=== PATIENT | female | born 1965 | race Caucasian/White ===

== ENCOUNTER → 2016-07-21 | Outpatient (CLI) | payer BC ==
[~2016-07-21] MED LIST: ALPR0.25 PO; ASPCH81X PO; CMD/25 PO; FRS/40 PO; GLC/500 PO; METO25TA3 PO; NTRGSL/4 UT; SIMV-151 PO; TPRSR/25 PO; TRIATAB3 PO
[2016-07-21 09:40] LABS: MEAN CELL VOLUME 64.3 fL (80-100); MEAN CORPUSCULAR HEMOGLOBIN 20.7 pg (25-34); MEAN CORPUSCULAR HGB CONC 32.2 g/dl (32-36); MEAN PLATELET VOLUME 10.5 fL (7.4-10.4); PLATELET COUNT 288 K/uL (130-400); WHITE BLOOD COUNT 7.03 K/uL (4.8-10.8)
[2016-07-21 09:57] LABS: ALT/SGPT 66 U/L (12-78); BLOOD UREA NITROGEN 19 mg/dl (7-18); BUN/CREATININE RATIO 17.6 (10-20); CALCIUM 9.4 mg/dl (8.5-10.1); CARBON DIOXIDE 26 mmol/L (21-32); CHLORIDE 103 mmol/L (98-107); CHOLESTEROL 154 mg/dl (0-200); GLUCOSE 166 mg/dl (70-99); POTASSIUM 3.8 mmol/L (3.5-5.1); SODIUM 139 mmol/L (136-145)
[2016-07-21 10:05] LABS: ALB/GLOB RATIO 1.2 (0.9-2); ALKALINE PHOSPHATASE 53 U/L (45-117); AST/SGOT 50 U/L (15-37); CHOLESTEROL/HDL RATIO 4.2; HDL CHOLESTEROL 37 mg/dl; LDL CHOLESTEROL CALCULATED 78 mg/dl; TRIGLYCERIDES 194 mg/dl (0-150); VERY LOW DENSITY LIPOPROT CALC 39 mg/dl
[2016-07-21 10:10] LABS: ESTIMATED AVERAGE GLUCOSE 148 mg/dl; HA1C FLAG Normal (Normal)
== END | disposition home or self-care (01) ==
LOC: C.LAB1850 07:53
PROVIDERS: ATTEND Family Medicine
DX: E78.5 Hyperlipidemia, unspecified (principal); E11.9 Type 2 diabetes mellitus without complications; I25.10 Atherosclerotic heart disease of native coronary artery without angina pectoris

== ENCOUNTER → 2016-11-10 | Outpatient (CLI) | payer BC ==
[~2016-11-10] MED LIST changes: -TPRSR/25 PO
--- NOTE | 2016-11-10 12:43 | MAMMOGRAPHY REPORT ---
BILATERAL DIGITAL SCREENING MAMMOGRAM TOMOSYNTHESIS WITH CAD: 11/10/2016 CLINICAL HISTORY: Routine screening. Patient has no complaints. TECHNIQUE: Breast tomosynthesis in addition to standard 2D mammography was performed. Current study was also evaluated with a Computer Aided Detection (CAD) system. COMPARISON: Comparison is made to exams dated: 11/09/2015 mammogram, 05/21/2015 mammogram, 11/06/2014 m ammogram, 07/09/2012 mammogram, 07/27/2011 mammogram - [facility], and 08/06/2008 mammo gram. BREAST COMPOSITION: There are scattered areas of fibroglandular density in both breasts. FINDINGS: No suspicious masses, calcifications, or areas of architectural distortion are noted in ei ther breast. There has been no significant interval change compared to prior exams. Bilateral benign -appearing calcifications are not significantly changed. IMPRESSION: ACR BI-RADS CATEGORY 2: BENIGN There is no mammographic evidence of malignancy. A 1 year screening mammogram is recommended. The pa tient will receive written notification of the results. Approximately 10% of breast cancers are not detected with mammography. A negative mammographic report should not delay biopsy if a clinically suggestive mass is present. Dai Moore M.D. /:11/10/2016 09:11:56 Rat Poisoner: Marybeth MCKEON)(M), [facility] letter sent: Normal 1/2 BI-RADS Code: ACR BI-RADS Category 2: Benign
== END | disposition home or self-care (01) ==
LOC: C.MAMM 08:26
PROVIDERS: ATTEND Family Medicine
DX: Z12.31 Encounter for screening mammogram for malignant neoplasm of breast (principal)

== ENCOUNTER → 2017-01-18 | Outpatient (CLI) | payer BC ==
[2017-01-18 12:26] LABS: HEMATOCRIT 36.9 % (37-47); MEAN CELL VOLUME 66.1 fL (80-100); MEAN CORPUSCULAR HEMOGLOBIN 21.1 pg (25-34); MEAN PLATELET VOLUME 10.5 fL (7.4-10.4); PLATELET COUNT 277 K/uL (130-400); RED BLOOD COUNT 5.58 M/uL (4.2-5.4); WHITE BLOOD COUNT 7.61 K/uL (4.8-10.8)
[2017-01-18 12:35] LABS: ESTIMATED AVERAGE GLUCOSE 140 mg/dl; HA1C FLAG Normal (Normal)
[2017-01-18 12:41] LABS: ALT/SGPT 62 U/L (12-78); BLOOD UREA NITROGEN 21 mg/dl (7-18); BUN/CREATININE RATIO 20.6 (10-20); CALCIUM 9.8 mg/dl (8.5-10.1); CARBON DIOXIDE 29 mmol/L (21-32); CHLORIDE 101 mmol/L (98-107); CHOLESTEROL 148 mg/dl (0-200); GLUCOSE 157 mg/dl (70-99); POTASSIUM 3.7 mmol/L (3.5-5.1); SODIUM 139 mmol/L (136-145); TRIGLYCERIDES 161 mg/dl (0-150); VERY LOW DENSITY LIPOPROT CALC 32 mg/dl
[2017-01-18 12:44] LABS: ALB/GLOB RATIO 1.2 (0.9-2); ALKALINE PHOSPHATASE 49 U/L (45-117); AST/SGOT 48 U/L (15-37); CHOLESTEROL/HDL RATIO 4.1; HDL CHOLESTEROL 36 mg/dl; LDL CHOLESTEROL CALCULATED 80 mg/dl
== END | disposition home or self-care (01) ==
LOC: C.LABPBG 07:17
PROVIDERS: ATTEND Family Medicine
DX: E11.9 Type 2 diabetes mellitus without complications (principal); E78.5 Hyperlipidemia, unspecified; I25.10 Atherosclerotic heart disease of native coronary artery without angina pectoris

== ENCOUNTER → 2017-08-04 | Outpatient (CLI) | payer OTHER ==
[~2017-08-04] MED LIST changes: -METO25TA3 PO; +METO25TA4 PO
[2017-08-04 10:43] LABS: HEMATOCRIT 35.4 % (37-47); HEMOGLOBIN 11.7 g/dL (12.0-16.0); MEAN CELL VOLUME 64.6 fL (80-100); MEAN CORPUSCULAR HEMOGLOBIN 21.4 pg (25-34); MEAN CORPUSCULAR HGB CONC 33.1 g/dl (32-36); MEAN PLATELET VOLUME 9.9 fL (7.4-10.4); PLATELET COUNT 324 K/uL (130-400); RED CELL DISTRIBUTION WIDTH CV 16.3 % (11.5-14.5); RED CELL DISTRIBUTION WIDTH SD 37.2 fL (36.4-46.3); WHITE BLOOD COUNT 7.79 K/uL (4.8-10.8)
[2017-08-04 10:55] LABS: ALBUMIN 4.1 gm/dl (3.4-5.0); ALT/SGPT 88 U/L (12-78); BLOOD UREA NITROGEN 20 mg/dl (7-18); CALCIUM 9.2 mg/dl (8.5-10.1); CARBON DIOXIDE 28 mmol/L (21-32); CHOLESTEROL 145 mg/dl (0-200); CREATININE 1.05 mg/dl (0.60-1.20); GLUCOSE 177 mg/dl (70-99); POTASSIUM 3.2 mmol/L (3.5-5.1); SODIUM 136 mmol/L (136-145)
[2017-08-04 11:06] LABS: ALKALINE PHOSPHATASE 45 U/L (45-117); AST/SGOT 79 U/L (15-37); LDL CHOLESTEROL CALCULATED 60 mg/dl; TOTAL PROTEIN 7.3 gm/dl (6.4-8.2)
[2017-08-04 11:50] LABS: HEMOGLOBIN A1C 7.3 % (4.5-5.6)
== END | disposition home or self-care (01) ==
LOC: C.LAB1850 08:56
PROVIDERS: ATTEND Family Medicine
DX: E78.5 Hyperlipidemia, unspecified (principal); E11.9 Type 2 diabetes mellitus without complications; E03.9 Hypothyroidism, unspecified

== ENCOUNTER → 2017-08-23 | Outpatient (CLI) | payer OTHER ==
[2017-08-23 14:41] LABS: ALBUMIN 4.3 gm/dl (3.4-5.0); ALT/SGPT 116 U/L (12-78); AST/SGOT 120 U/L (15-37); BLOOD UREA NITROGEN 20 mg/dl (7-18); CALCIUM 9.8 mg/dl (8.5-10.1); CARBON DIOXIDE 25 mmol/L (21-32); CREATININE 1.15 mg/dl (0.60-1.20); GLUCOSE 165 mg/dl (70-99); POTASSIUM 3.5 mmol/L (3.5-5.1); SODIUM 136 mmol/L (136-145)
[2017-08-23 14:43] LABS: ALKALINE PHOSPHATASE 52 U/L (45-117); TOTAL PROTEIN 7.9 gm/dl (6.4-8.2)
== END | disposition home or self-care (01) ==
LOC: C.LABPBG 07:56
PROVIDERS: ATTEND Family Medicine
DX: R74.8 Abnormal levels of other serum enzymes (principal); E87.6 Hypokalemia

== ENCOUNTER → 2017-09-03 | Outpatient (CLI) | payer OTHER ==
--- NOTE | 2017-09-03 09:59 | DIAGNOSTIC IMAGING REPORT ---
BILIARY ULTRASOUND CLINICAL HISTORY: R74.8 Elevated liver enzymes COMPARISON STUDY: 09/14/2014 FINDINGS: No pancreatic masses are visualized. There is slight increase in hepatic echogenicity, nonspecific finding most often seen in hepatic steatosis. There is a subtle 4.7 x 3.6 x 3.8 cm hypoechoic focus within the right lobe of the liver, similar to the preceding study. The 3 year stability strongly favors a benign process No gallstones are visualized. There is no ductal dilatation. The common bile duct measures 5 mm. There is no right-sided hydronephrosis IMPRESSION: 1. Ultrasonographically normal gallbladder 2. Persistent increase in hepatic echogenicity, likely secondary to hepatic steatosis 3. Stable 47 x 38 x 36 mm hypoechoic focus within the right lobe of the liver peripherally Electronically signed by: Stevie Bryan M.D. 09/03/2017 9:58 AM Dictated Date/Time: 09/03/2017 9:56 AM
== END | disposition home or self-care (01) ==
LOC: C.ULTR 09:10
PROVIDERS: ATTEND Family Medicine
DX: R74.8 Abnormal levels of other serum enzymes (principal)

== ENCOUNTER → 2017-12-05 | Outpatient (CLI) | payer OTHER ==
[~2017-12-05] MED LIST changes: +DULA1INJ SC
[2017-12-05 13:25] LABS: BLOOD UREA NITROGEN 12 mg/dl (7-18); CARBON DIOXIDE 27 mmol/L (21-32); CREATININE 1.12 mg/dl (0.60-1.20); GLUCOSE 144 mg/dl (70-99); SODIUM 138 mmol/L (136-145)
[2017-12-05 13:43] LABS: HEMOGLOBIN A1C 6.6 % (4.5-5.6)
[2017-12-06 09:41] LABS: ALBUMIN 4.2 gm/dl (3.4-5.0); TOTAL PROTEIN 7.3 gm/dl (6.4-8.2)
== END | disposition home or self-care (01) ==
LOC: C.LABPBG 08:00
PROVIDERS: ATTEND Family Medicine
DX: R74.8 Abnormal levels of other serum enzymes (principal); E11.9 Type 2 diabetes mellitus without complications